=== PATIENT | female | born 1990 | race African-American/Black ===

== ENCOUNTER 2017-05-30 19:35 | Emergency (ER) | payer OTHER ==
[2017-05-30 20:03] VITALS: BP 118/70
--- NOTE | 2017-05-30 20:07 | UC ---
Upper Extremity HPI - HPI Summary HPI Summary: 26 year old female presents with complains of left 3rd finger pain after slamming it in the car door. - History of Current Complaint Chief Complaint: UCUpperExtremity Stated Complaint: FINGER INJURY Time Seen by Provider: 05/30/17 20:06 Hx Obtained From: Patient Hx Last Menstrual Period: 05/14/17 Onset/Duration: Sudden Onset Severity Initially: Moderate Severity Currently: Moderate Pain Scale Used: 0-10 Numeric - 8 - Allergies/Home Medications Allergies/Adverse Reactions: Allergies Allergy/AdvReac Type Severity Reaction Status Date / Time No Known Allergies Allergy Verified 05/30/17 20:03 PMH/Surg Hx/FS Hx/Imm Hx Previously Healthy: Yes - Surgical History Surgical History: None - Social History Alcohol Use: Rare Substance Use Type: None Smoking Status (MU): Never Smoked Tobacco Review of Systems Constitutional: Negative Skin: Negative Eyes: Negative ENT: Negative Respiratory: Negative Cardiovascular: Negative Gastrointestinal: Negative Genitourinary: Negative Motor: Negative Neurovascular: Negative Musculoskeletal: Other: - left 3rd finger swelling/pain Neurological: Negative Psychological: Negative All Other Systems Reviewed And Are Negative: Yes Physical Exam Triage Information Reviewed: Yes Appearance: Well-Appearing Vital Signs: Initial Vital Signs Temp 36.6 C 05/30/17 20:00 Pulse 91 05/30/17 20:00 Resp 18 05/30/17 20:00 BP 118/70 05/30/17 20:00 Pulse Ox 100 05/30/17 20:00 Vital Signs Reviewed: Yes Eye Exam: Normal ENT Exam: Normal Dental Exam: Normal Neck exam: Normal Neck: Positive: 1 Respiratory Exam: Normal Cardiovascular Exam: Normal Abdominal Exam: Normal Musculoskeletal: Positive: Other: - left 3rd finger swelling/pain Neurological Exam: Normal Psychological Exam: Normal Skin Exam: Normal Upper Extremity Course/Dx - Differential Dx/Diagnosis Provider Diagnoses: left 3rd finger swelling/pain Discharge - Discharge Plan Condition: Stable Disposition: HOME Prescriptions: Cephalexin CAP* [Keflex 500 CAP*] 500 mg PO TID #21 cap Patient Education Materials: Crush Injury (ED) Referrals: [facility] [Primary Care Provider] -
--- NOTE | 2017-05-30 20:46 | RAD ---
INDICATION: Pain of the distal phalanx of the left middle finger after slamming her hand in a car door COMPARISON: None. TECHNIQUE: 4 views of the left hand were obtained. FINDINGS: The adequately corticated bones are in normal alignment. No significant focal osseous abnormality or fracture is seen. Joint spaces appear maintained. IMPRESSION: Normal left hand radiograph. If the patient's symptoms persist, follow-up imaging is recommended.
[2017-05-30] MEDS ORDERED: Cephalexin CAP* 500 MG PO ONE (21:01)
== END 2017-05-30 21:20 | disposition home or self-care (01) ==
LOC: UCEAST 19:35
DX: M79.645 Pain in left finger(s) (principal)
CPT/HCPCS: 99202; A9270-GY; G0463